=== PATIENT | female | born 1985 | race Caucasian/White ===

== ENCOUNTER 2017-02-08 19:47 | Emergency (ER) | payer SELFPAY | END 2017-02-09 00:23 | LOC: TRA 19:47 | PROC: 5A12012 Performance of Cardiac Output, Single, Manual (ICD-10-PCS; principal; 2017-02-08) | DX: I46.9 Cardiac arrest, cause unspecified (principal); S01.81XA Laceration without foreign body of other part of head, initial encounter; S11.91XA Laceration without foreign body of unspecified part of neck, initial encounter; S31.114A Laceration without foreign body of abdominal wall, left lower quadrant without penetration into peritoneal cavity, initial encounter; Y28.9XXA Contact with unspecified sharp object, undetermined intent, initial encounter | CPT/HCPCS: 80048; 81003; 82150; 83605; 83690; 84484; 84702; 85025; 85610; 85730; 86850; 86900; 86901; 87040; 99281; 99285; G0480 ==